=== PATIENT | female | born 1945 | race Caucasian/White ===

== ENCOUNTER 2016-09-06 22:19 | Inpatient (IN) | payer MEDICARE, OTHER ==
[~2016-09-06] VITALS: Ht 170.2 cm; Wt 92.2 kg
[2016-09-06] MEDS ORDERED: FLUT1AER INH (22:27)
[2016-09-06] MEDS ORDERED: RT-ALBUTEROL/IPRATROPIUM 3 ML (DUONEB) VIAL ONE (22:27)
[2016-09-06] MEDS ORDERED: CITA40TA11 PO (22:27)
[2016-09-06] MEDS ORDERED: MONT10TA24 PO (22:27)
--- NOTE | 2016-09-06 22:37 | ED Dyspnea ---
General Chief Complaint: Respiratory Problems Stated Complaint: SOA Nursing Triage Note: patient reports increased SOA and cough starting this morning. Source of Information: Patient, EMS, RN Notes Reviewed Exam Limitations: No Limitations History of Present Illness Time Seen by Provider: 22:30 Initial Comments As above and below. Known severe COPD. Sees Dr. Simmons here. Timing/Duration: Constant, Other (worsening since this AM) Severity: Moderate Activities at Onset: None Prior Episodes/Possible Cause: Frequent Episodes Modifying Factors: Worse With Activity, Improves With Other (lost electrical power @ home and was s/ her O2 concentrator and nebulizer.) Associated Symptoms: Cough, Wheezing Allergies and Home Medications Allergies Coded Allergies: No Known Drug Allergies (Unverified , 09/06/16) Home Medications Albuterol Sulfate 1 Puff Puff, 2 PUFF INH Q4H PRN for SHORTNESS OF BREATH, ( Reported) Aspirin 81 Mg Tab.chew, 81-162 MG PO DAILY PRN for PAIN, (Reported) Cetirizine HCl 10 Mg Tablet, 10 MG PO DAILY, (Reported) Citalopram Hydrobromide 40 Mg Tablet, 40 MG PO DAILY, (Reported) Cyanocobalamin (Vitamin B-12) 500 Mcg Tablet, 500 MCG PO DAILY, (Reported) Dextromethorphan HBr/Chlor-Mal 1 Each Tablet, 1 TAB PO DAILY, (Reported) Fluticasone/Vilanterol 1 Each Blst.w.dev, 1 PUFF INH DAILY, (Reported) Ipratropium/Albuterol Sulfate 3 Ml Ampul.neb, 3 ML IH Q6H PRN for SHORTNESS OF BREATH, (Reported) Montelukast Sodium 10 Mg Tablet, 10 MG PO HS, (Reported) Prednisone 20 Mg Tab, 20 MG PO DAILY, #11 Take 3 tabs(60mg)daily, decrease by 1/2 tab(10mg)daily. Prescribed by: DELILAH MEDEIROS on 09/08/16 1157 Constitutional: see HPI Respiratory: see HPI, cough, dyspnea on exertion, orthopnea, short of breath, wheezing : No All Other Systems Reviewed Negative Unless Noted: Yes (Negative excepted noted.) Past Licwvdp-Ttidwx-Kcverb Hx Patient Social History Alcohol Use: Denies Use Recreational Drug Use: No Smoking Status: Former Smoker Recent Foreign Travel: No Contact w/Someone Who Travel: No Recent Infectious Disease Expo: No Recent Hopitalizations: No Surgeries HX Surgeries: Yes (partial hysterectomy) Respiratory Hx Respiratory Disorders: Yes Respiratory Disorders: Chronic Bronchitis, COPD Cardiovascular Hx Cardiac Disorders: No Neurological Hx Neurological Disorders: No Reproductive System Hx Reproductive Disorders: No Sexually Transmitted Disease: No Genitourinary Hx Genitourinary Disorders: No Gastrointestinal Hx Gastrointestinal Disorders: No Musculoskeletal Hx Musculoskeletal Disorders: No Endocrine Hx Endocrine Disorders: No HEENT HX ENT Disorders: No Cancer Hx Cancer: No Psychosocial Hx Psychiatric Problems: No Integumentary HX Skin/Integumentary Disorder: No Blood Transfusions Hx Blood Disorders: No Physical Exam Vital Signs Vital Sign - Last 12Hours 09/06/16 22:25 Temp 99.3 Pulse 112 Resp 36 B/P (MAP) 118/69 Pulse Ox 92 O2 Delivery Nasal Cannula O2 Flow Rate 4.00 Capillary Refill : Less Than 3 Seconds General Appearance: WD/WN, Mild Distress, Obese HEENT: Pharynx Normal Neck: Normal Inspection Respiratory: Decreased Breath Sounds, Respiratory Distress (mild) Cardiovascular: Tachycardia Gastrointestinal: Other (obese) Rectal: Deferred Neurologic/Psychiatric: Alert, Oriented x3, No Motor/Sensory Deficits Skin: Warm/Dry Focused Exam Lactic Acid Level Laboratory Tests Test 09/06/16 22:45 Progress/Results/Core Measures Results/Orders Lab Results Laboratory Tests Test 09/06/16 22:45 Range/Units White Blood Count 10.5 4.3-11.0 10^3/uL Red Blood Count 4.03 L 4.35-5.85 10^6/uL Hemoglobin 10.1 L 11.5-16.0 G/DL Hematocrit 32 L 35-52 % Mean Corpuscular Volume 80 80-99 FL Mean Corpuscular Hemoglobin 25 25-34 PG Mean Corpuscular Hemoglobin Concent 31 L 32-36 G/DL Red Cell Distribution Width 14.3 10.0-14.5 % Platelet Count 205 130-400 10^3/uL Mean Platelet Volume 8.9 7.4-10.4 FL Neutrophils (%) (Auto) 81 H 42-75 % Lymphocytes (%) (Auto) 14 12-44 % Monocytes (%) (Auto) 4 0-12 % Eosinophils (%) (Auto) 1 0-10 % Basophils (%) (Auto) 0 0-10 % Neutrophils # (Auto) 8.6 H 1.8-7.8 X 10^3 Lymphocytes # (Auto) 1.5 1.0-4.0 X 10^3 Monocytes # (Auto) 0.4 0.0-1.0 X 10^3 Eosinophils # (Auto) 0.1 0.0-0.3 10^3/uL Basophils # (Auto) 0.0 0.0-0.1 10^3/uL Micro Results Microbiology 09/06/16 Influenza Types A,B Antigen (TAVO) - Final, Complete My Orders Orders - MICHELLE AMARAL DO Albuterol/Ipra Inhalation Soln (Duoneb I (09/06/16 22:27) Ekg Tracing (09/06/16 22:34) BNP (09/06/16 22:34) Cbc With Automated Diff (09/06/16 22:34) Comprehensive Metabolic Panel (09/06/16 22:34) Lactic Acid Analyzer (09/06/16 22:34) Magnesium (09/06/16 22:34) Troponin I (09/06/16 22:34) Influenza A And B Antigens (09/06/16 22:34) Blood Culture (09/06/16 22:34) Chest 1 View, Ap/Pa Only (09/06/16 22:34) Albuterol Pre-Mix Nebs (Rt) (Proventil P (09/06/16 22:38) Medications Given in ED Current Medications Medications Dose Ordered Sig/Tatianna Route Start Time Stop Time Status Last Admin Dose Admin Albuterol Sulfate 2.5 mg STK-MED ONCE .ROUTE 09/06/16 22:38 09/06/16 22:41 DC 09/06/16 22:44 7.5 MG Albuterol/ Ipratropium 3 ml STK-MED ONCE .ROUTE 09/06/16 22:27 09/06/16 22:30 DC 09/06/16 22:35 3 ML Vital Signs/I&O Vital Sign - Last 12Hours 09/06/16 09/06/16 09/06/16 22:25 22:35 22:45 Temp 99.3 Pulse 112 Resp 36 B/P (MAP) 118/69 Pulse Ox 92 92 O2 Delivery Nasal Cannula O2 Flow Rate 4.00 4.00 8.00 Blood Pressure Mean: 85 ECG Initial ECG Impression Date: Sep 06, 2016 Initial ECG Impression Time: 22:40 Initial ECG Rate: 106 Initial ECG Rhythm: Normal Sinus Initial ECG Impression: Nonspecific Changes Initial ECG Comparisson: No Previous ECG Available Comment PVC; Inferior ME, old; Diagnostic Imaging Diagonstic Imaging: Xray Plain Films/CT/US/NM/MRI: chest (COPD; ? RLL pneumonitis) Departure Communication Time/Spoke to Admitting Phy: 00:45 Impression Impression: Primary Impression: AECOPD Disposition: ADMITTED INPATIENT Condition: Stable Decision to Admit Reason: Admit from ER (General) Decision to Admit/Date: Sep 07, 2016 Time/Decision to Admit Time: 00:45 Departure-Patient Inst. Referrals: PANCHO ÁLVAREZ DO (PCP/Family) Primary Care Physician Scripts Prednisone (Prednisone) 20 Mg Tab 20 MG PO DAILY, #11 TAB Take 3 tabs(60mg)daily, decrease by 1/2 tab(10mg)daily. Prov: DELILAH MEDEIROS MD 09/08/16 MICHELLE AMARAL DO Sep 06, 2016 22:37
[2016-09-06] MEDS ORDERED: RT-ALBUTEROL SULF 2.5 MG/3 ML PRE-MIX VIAL ONE (22:38)
[2016-09-06 22:54] LABS: BASOPHILS % (AUTO) 0 % (0-10); EOSINOPHILS # (AUTO) 0.1 10^3/uL (0.0-0.3); EOSINOPHILS % (AUTO) 1 % (0-10); LYMPHOCYTES # (AUTO) 1.5 X 10^3 (1.0-4.0); LYMPHOCYTES % (AUTO) 14 % (12-44); MEAN CORPUSCULAR HEMOGLOBIN 25 PG (25-34); MEAN CORPUSCULAR HGB CONC 31 G/DL (32-36); MEAN CORPUSCULAR VOLUME 80 FL (80-99); MEAN PLATELET VOLUME 8.9 FL (7.4-10.4); MONOCYTES # (AUTO) 0.4 X 10^3 (0.0-1.0); MONOCYTES % (AUTO) 4 % (0-12); NEUTROPHILS # (AUTO) 8.6 X 10^3 (1.8-7.8); NEUTROPHILS % (AUTO) 81 % (42-75); PLATELET COUNT 205 10^3/uL (130-400); RED BLOOD COUNT 4.03 10^6/uL (4.35-5.85); RED CELL DISTRIBUTION WIDTH 14.3 % (10.0-14.5); WHITE BLOOD COUNT 10.5 10^3/uL (4.3-11.0)
[2016-09-06 23:12] LABS: ALANINE AMINOTRANSFERASE 8 U/L (0-55); ALBUMIN 3.7 G/DL (3.2-4.5); ANION GAP 11 MMOL/L (5-14); ASPARTATE AMINO TRANSFERASE 15 U/L (5-34); BLOOD UREA NITROGEN 17 MG/DL (7-18); BUN/CREATININE RATIO 16; CALCIUM 8.6 MG/DL (8.5-10.1); CARBON DIOXIDE 23 MMOL/L (21-32); CHLORIDE 105 MMOL/L (98-107); CREATININE SERUM 1.09 MG/DL (0.60-1.30); GFR ESTIMATED 49; GLUCOSE 132 MG/DL (70-105); MAGNESIUM 1.7 MG/DL (1.8-2.4); POTASSIUM 4.1 MMOL/L (3.6-5.0); SODIUM 139 MMOL/L (135-145); TOTAL PROTEIN 6.6 G/DL (6.4-8.2)
[2016-09-06 23:18] LABS: TROPONIN I < 0.30 NG/ML (<0.30)
[2016-09-06] MEDS ORDERED: cefTRIAXone INJECTION 1,000 MG in NS (IVPB) 50 ML IV ONE (23:45)
[2016-09-06] MEDS ORDERED: cefTRIAXone 1 GM (ROCEPHIN) VIAL ONE (23:50)
[2016-09-06] MEDS ORDERED: NS (IVPB) 50 ML ONE (23:50)
[2016-09-07] VITALS (7 sets, daily range): BP systolic 121–157; BP diastolic 66–80
[2016-09-07] MEDS ORDERED: RT-ALBUTEROL SULF 2.5 MG/3 ML PRE-MIX VIAL IH PRN (02:45)
[2016-09-07] MEDS ORDERED: RT-ALBUTEROL/IPRATROPIUM 3 ML (DUONEB) VIAL INH PRN (02:45)
[2016-09-07] MEDS ORDERED: methylPREDNISolone 125 MG (Solu-MEDROL) VIAL IVP SCH (02:48)
[2016-09-07] MEDS ORDERED: RT-ALBUTEROL/IPRATROPIUM 3 ML (DUONEB) VIAL IH SCH (03:00)
[2016-09-07] MEDS ORDERED: ENOXAPARIN 40 MG/0.4 ML (LOVENOX) SYR SC ONE (03:00)
[2016-09-07] MEDS: NS IV 1000 ML 1,000 ML IV SCH ×2 (03:02→13:53)
[2016-09-07] MEDS: AZITHROMYCIN 500 MG/NS 250 ML IVPB IV SCH ×2 (03:02)
[2016-09-07] MEDS ORDERED: CATHETER FLUSH 10 ML SYR IV PRN (06:45)
[2016-09-07] MEDS: RT-ALBUTEROL/IPRATROPIUM 3 ML (DUONEB) VIAL INH SCH ×6 (07:16→22:15)
--- NOTE | 2016-09-07 07:24 | Pulmonary Consultation ---
History of Present Illness History of Present Illness Date of Consultation 09/07/16 07:20 Date of Admission History of Present Illness 71yo with hx of very severe emphysema oxygen dependent presented to ED secondary to worsening SOB. On Wednesday pt had prolonged loss of power and he had to switch to liquid oxygen. She has had to increase oxygen to 6l/min. SOB has continued to worsen which prompted her ED visit. Allergies and Home Medications Allergies Coded Allergies: No Known Drug Allergies (Unverified , 09/06/16) Home Medications Albuterol Sulfate 1 Puff Puff, 2 PUFF INH Q4H PRN for SHORTNESS OF BREATH, ( Reported) Aspirin 81 Mg Tab.chew, 81-162 MG PO DAILY PRN for PAIN, (Reported) Cetirizine HCl 10 Mg Tablet, 10 MG PO DAILY, (Reported) Citalopram Hydrobromide 40 Mg Tablet, 40 MG PO DAILY, (Reported) Cyanocobalamin (Vitamin B-12) 500 Mcg Tablet, 500 MCG PO DAILY, (Reported) Dextromethorphan HBr/Chlor-Mal 1 Each Tablet, 1 TAB PO DAILY, (Reported) Fluticasone/Vilanterol 1 Each Blst.w.dev, 1 PUFF INH DAILY, (Reported) Ipratropium/Albuterol Sulfate 3 Ml Ampul.neb, 3 ML IH Q6H PRN for SHORTNESS OF BREATH, (Reported) Montelukast Sodium 10 Mg Tablet, 10 MG PO HS, (Reported) Prednisone 20 Mg Tab, 20 MG PO DAILY, #11 Take 3 tabs(60mg)daily, decrease by 1/2 tab(10mg)daily. Prescribed by: DELILAH MEDEIROS on 09/08/16 1157 Past Apqeppp-Ukgkgt-Cgxwxm Hx Patient Social History Alcohol Use: Denies Use Recreational Drug Use: No Smoking Status: Former Smoker Recent Foreign Travel: No Contact w/Someone Who Travel: No Recent Infectious Disease Expo: No Recent Hopitalizations: No Physical Abuse Screen: No Sexual Abuse: No Immunizations Up To Date Date of Pneumonia Vaccine: Feb 08, 2016 Date of Influenza Vaccine: Apr 09, 2016 Surgeries HX Surgeries: Yes (partial hysterectomy) Respiratory Hx Respiratory Disorders: Yes Respiratory Disorders: COPD Cardiovascular Hx Cardiac Disorders: No Neurological Hx Neurological Disorders: No Reproductive System Hx Reproductive Disorders: No Sexually Transmitted Disease: No Genitourinary Hx Genitourinary Disorders: No Gastrointestinal Hx Gastrointestinal Disorders: No Musculoskeletal Hx Musculoskeletal Disorders: No Endocrine Hx Endocrine Disorders: No HEENT HX ENT Disorders: No Hearing Impairment: Denies Cancer Hx Cancer: No Psychosocial Hx Psychiatric Problems: No Integumentary HX Skin/Integumentary Disorder: No Blood Transfusions Hx Blood Disorders: No Family Medical History Family Medial History: CANCER 19 MOTHER COPD 19 MOTHER Diabetes mellitus G8 BROTHER Review of Systems Constitutional: Malaise, Sweats, Weakness Respiratory: Cough, SOB with excertion, Shortness of breath, Sputum Cardiovascular: Paroxysmal Noc. Dyspnea Neurological: Confusion, Weakness Exam Exam Vital Signs Date Time Temp Pulse Resp B/P (MAP) Pulse Ox O2 Delivery O2 Flow Rate FiO2 09/07/16 03:24 98.5 84 14 140/72 95 Nasal Cannula 3.00 09/07/16 01:30 93 09/07/16 01:30 93 4.00 09/07/16 01:15 90 Nasal Cannula 4.00 09/07/16 00:40 99.7 112 24 145/76 90 Nasal Cannula 4.00 09/07/16 00:16 99.2 98 28 92 4.00 09/06/16 22:45 8.00 09/06/16 22:35 92 4.00 09/06/16 22:25 99.3 112 36 118/69 92 Nasal Cannula 4.00 I & O 09/07/16 07:00 Intake Total 400 ml Output Total 300 ml Balance 100 ml General Appearance: Mild Distress Neck: Full Range of Motion, Normal Inspection, Non Tender, Supple Respiratory: No Accessory Muscle Use, No Respiratory Distress, Decreased Breath Sounds Cardiovascular: Regular Rate, Rhythm Capillary Refill: Less Than 3 Seconds Gastrointestinal: normal bowel sounds, non tender, soft, no organomegaly Neurologic/Psychiatric: Alert Skin: Normal Color, Warm/Dry Results Lab Laboratory Tests 09/06/16 22:45 Assessment/Plan Assessment/Plan COPDAE -SVNS, solumedrol -oxygen titrate for Sp02 90-94% Clinical Quality Measures DVT/VTE Risk/Contraindication: Risk Factor Score Per Nursin RFS Level Per Nursing on Admit: 4+=Very High LISA SAXENA DO Sep 07, 2016 07:24
--- NOTE | 2016-09-07 08:04 | Diagnostic Imaging Report ---
INDICATION: Dyspnea and cough with Abnormal chest x-ray Portable upright view of the chest is obtained. Comparison is made to study of 03/23/2016. Similar to the previous study, there is bilateral air trapping. Interstitial prominence seen throughout the lungs. Focal opacity in the right upper lobe has not significantly changed. There is also mild residual patchy density in the right lung base which may be slightly increased. There is no pneumothorax or evidence of significant pleural fluid. IMPRESSION: Findings are compatible with COPD. Patchy densities in the right lung may be related to pneumonitis or atypical pneumonia. Radiographic followup is recommended to document resolution. If these findings persist or increase, consideration should be given to CT scan. Dictated by: Dictated on workstation # [id number]
[2016-09-07] MEDS ORDERED: DEXT1TAB3 PO (10:12)
[2016-09-07] MEDS ORDERED: RT-ALBUINH INH (10:12)
[2016-09-07] MEDS ORDERED: IPRA3AMP IH (10:12)
[2016-09-07] MEDS ORDERED: ASPI-999 PO (10:12)
[2016-09-07] MEDS ORDERED: CYAN500T2 PO (10:15)
[2016-09-07] MEDS ORDERED: CETI10TA20 PO (10:18)
[2016-09-07] MEDS: BENZONATATE 100 MG (TESSALON) CAPSULE PO PRN ×2 (11:59→17:41)
[2016-09-07] MEDS: methylPREDNISolone 40 MG/ML (Solu-MEDROL) VIAL IV SCH ×3 (12:01→23:09)
[2016-09-07] MEDS ORDERED: ASPIRIN 81 MG CHEW (CHILDREN'S ASA) PO PRN (12:30)
--- NOTE | 2016-09-07 15:15 | History & Physical-Hospitalist ---
HPI History of Present Illness: HPI/Chief Complaint The patient is a 71-year-old white female who lives in the [facility]. She has had symptoms of COPD for some years. She has a nebulizer at her home and also a concentrator and a large tank of liquid oxygen. She reports that on Wednesday she had a prolonged power loss and had to switch to the liquid oxygen supply. Although she has a finger probe SaO2 monitor she did not check it. Empirically she increased her flow Rate to 6 L/m. She continued to feel short of breath and presented to the emergency room here. She sees Dr. Wilks from [place]. Source: patient, family Exam Limitations: no limitations Date Seen 09/07/16 Attending Physician Bill Wright MD PCP Yosef Wilks DO Referring Physician Date of Admission Sep 07, 2016 at 00:02 Home Medications & Allergies Home Medications Reviewed patient Home Medication Reconciliation Form Allergies Allergies Coded Allergies No Known Drug Allergies (Unverified09/06/16) Past Kzzkvco-Ncvhgg-Llqfhm Hx Patient Social History Alcohol Use: Denies Use Recreational Drug Use: No Smoking Status: Former Smoker Physical Abuse Screen: No Sexual Abuse: No Recent Foreign Travel: No Contact w/other who traveled: No Recent Hopitalizations: No Recent Infectious Disease Expo: No Immunizations Up To Date Date of Pneumonia Vaccine: Feb 08, 2016 Date of Influenza Vaccine: Apr 09, 2016 Surgeries HX Surgeries: Yes (partial hysterectomy) Respiratory Hx Respiratory Disorders: Yes Cardiovascular Hx Cardiovascular Disorders: No Neurological Hx Neurological Disorders: No Reproductive System Hx Reproductive Disorders: No Sexually Transmitted Disease: No Genitourinary Hx Genitourinary Disorders: No Gastrointestinal Hx Gastrointestinal Disorders: No Musculoskeletal Hx Musculoskeletal Disorders: No Endocrine Hx Endocrine Disorders: No HEENT HX ENT Disorders: No Hearing Impairment: Denies Cancer Hx Cancer: No Psychosocial Hx Psychiatric Problems: No Integumentary HX Skin/Integumentary Disorder: No Blood Transfusions Hx Blood Disorders: No Family Medical History Family Hx: CANCER 19 MOTHER COPD 19 MOTHER Diabetes mellitus G8 BROTHER Review of Systems Constitutional: see HPI EENTM: no symptoms reported Respiratory: see HPI, cough, dyspnea on exertion, short of breath, wheezing Cardiovascular: no symptoms reported Gastrointestinal: no symptoms reported Genitourinary: no symptoms reported Musculoskeletal: no symptoms reported Skin: no symptoms reported Psychiatric/Neurological: No Symptoms Reported Physical Exam Physical Exam Vital Signs Vital Sign - Last 12Hours 09/06/16 22:25 Temp 99.3 Pulse 112 Resp 36 B/P (MAP) 118/69 Pulse Ox 92 O2 Delivery Nasal Cannula O2 Flow Rate 4.00 Capillary Refill : Less Than 3 Seconds General Appearance: Mild Distress Eyes: Bilateral Eye Normal Inspection HEENT: Normal ENT Inspection Neck: Normal Inspection Respiratory: Decreased Breath Sounds (distant) Cardiovascular: Regular Rate, Rhythm, No Edema, No Gallop, No JVD, No Murmur, Normal Peripheral Pulses Gastrointestinal: Normal Bowel Sounds, No Organomegaly, No Pulsatile Mass, Non Tender, Soft Back: Normal Inspection Extremity: Normal Capillary Refill, Normal Inspection, Normal Range of Motion, Non Tender, No Calf Tenderness, No Pedal Edema Neurologic/Psychiatric: Alert, Oriented x3, No Motor/Sensory Deficits, Normal Mood/Affect Skin: Normal Color, Warm/Dry Lymphatic: No Adenopathy Results Results/Procedures Lab Laboratory Tests 09/06/16 22:45 Assessment/Plan Admission Diagnosis COPD in exacerbation. Assessment and Plan Pulmonary toilet. 2.consult [address] Dr[address] Simmons. Clinical Quality Measures DVT/VTE Risk/Contraindication: Risk Factor Score Per Nursin RFS Level Per Nursing on Admit: 4+=Very High DELILAH MEDEIROS MD Sep 07, 2016 15:15
[2016-09-07] MEDS: RT-ADVAIR HFA 45/21 MCG PER PUFF IH SCH (18:31)
[2016-09-07] MEDS ORDERED: MONTELUKAST 10 MG (SINGULAIR) TAB PO SCH (21:00)
[2016-09-07] MEDS ORDERED: cefTRIAXone INJECTION 1,000 MG in NS (IVPB) 50 ML IV SCH (23:00)
[2016-09-08] MEDS: NS IV 1000 ML 1,000 ML IV SCH ×2 (01:16→08:45)
[2016-09-08] MEDS: RT-ALBUTEROL/IPRATROPIUM 3 ML (DUONEB) VIAL INH SCH ×4 (02:28→14:22)
[2016-09-08] MEDS: AZITHROMYCIN 500 MG/NS 250 ML IVPB IV SCH ×2 (02:41)
[2016-09-08 04:00] VITALS: BP 143/80
[2016-09-08] MEDS: methylPREDNISolone 40 MG/ML (Solu-MEDROL) VIAL IV SCH (05:44)
[2016-09-08] MEDS: RT-ADVAIR HFA 45/21 MCG PER PUFF IH SCH (06:47)
--- NOTE | 2016-09-08 07:21 | Pulmonary Progress Note ---
Subjective Subjective/Events-last exam No complications noted. Exam Exam Vital Signs Date Time Temp Pulse Resp B/P (MAP) Pulse Ox O2 Delivery O2 Flow Rate FiO2 09/08/16 06:56 3.00 09/08/16 06:47 96 3.00 09/08/16 04:00 96.3 80 20 143/80 97 Nasal Cannula 3.00 09/08/16 02:29 98 3.00 09/07/16 23:30 97.2 83 18 157/80 94 Nasal Cannula 3.00 09/07/16 22:16 96 3.00 09/07/16 20:35 Nasal Cannula 3.00 09/07/16 20:10 97.7 86 20 126/67 96 Room Air 09/07/16 18:31 3.00 09/07/16 18:28 97 3.00 09/07/16 16:18 96.7 81 20 121/66 94 Room Air 09/07/16 13:32 97 3.00 09/07/16 12:00 97.9 74 20 126/70 97 Nasal Cannula 3.00 09/07/16 11:05 97 3.00 09/07/16 10:00 95 Nasal Cannula 3.00 09/07/16 08:00 97.3 69 20 125/68 95 Nasal Cannula 3.00 09/07/16 08:00 97.3 69 20 125/68 95 Room Air 09/07/16 07:41 95 3.00 I & O 09/08/16 07:00 Intake Total 3670 ml Output Total 1500 ml Balance 2170 ml General Appearance: Mild Distress HEENT: Normal ENT Inspection Neck: Normal Inspection Respiratory: Decreased Breath Sounds (distant) Cardiovascular: Regular Rate, Rhythm, No Edema, No Gallop, No JVD, No Murmur, Normal Peripheral Pulses Capillary Refill: Less Than 3 Seconds Extremity: Normal Capillary Refill, Normal Inspection, Normal Range of Motion, Non Tender, No Calf Tenderness, No Pedal Edema Neurologic/Psychiatric: Alert, Oriented x3, No Motor/Sensory Deficits, Normal Mood/Affect Skin: Normal Color, Warm/Dry Lymphatic: No Adenopathy Results Lab Laboratory Tests 09/06/16 22:45 Assessment/Plan Assessment/Plan COPDAE -SVNS, solumedrol-- change to prednisone taper -Advair -oxygen titrate for Sp02 90-94% -Titrate Fi02 as tolerated Clinical Quality Measures DVT/VTE Risk/Contraindication: Risk Factor Score Per Nursin RFS Level Per Nursing on Admit: 4+=Very High LISA SAXENA DO Sep 08, 2016 07:21
[2016-09-08 08:00] VITALS: BP 127/62
[2016-09-08] MEDS ORDERED: AZITHROMYCIN 250 MG TAB (ZITHROMAX) PO SCH (09:00)
--- NOTE | 2016-09-08 11:01 | Progress Note-Hospitalist ---
Standard Progress Note Progress Notes/Assess & Plan Date Seen 09/08/16 Diagnosis COPD in exacerbation. Assess & Plan/Chief Complaint The patient reports that she feels a good deal better today. Dr. Simmons has discontinued the IV steroids. She reports that she feels unsteady on her feet and shaky. Her O2 has currently been at 3 L yielding SaO2's in the mid to high 90s. Physical exam shows a white female who appears much older than stated age. She is breathing easily while sitting. Lungs show distant breath sounds without wheezing or rhonchi. CV is regular without murmur. Ankles are dry. Impression: Severe COPD. Transient destabilization secondary to power loss in her home. Tremorous the movement suggesting the possibility of high-dose steroid side effect. Plan: Oral prednisone taper and discharge. Labs Laboratory Tests 09/06/16 22:45 DELILAH MEDEIROS MD Sep 08, 2016 11:01
--- NOTE | 2016-09-08 11:36 | Physical Therapy Evaluation ---
PT Evaluation-General Medical Diagnosis Admission Date Sep 07, 2016 at 00:02 Medical Diagnosis: acute COPD exacerbation Onset Date: Sep 07, 2016 Therapy Diagnosis Therapy Diagnosis: generalized weakness and debility Height/Weight Height (Feet): 5 Height (Inches): 7.00 Weight (Pounds): 203 Weight (Ounces): 5.0 Precautions Precautions/Isolations: Fall Prevention, Standard Precautions Referral Physician: Sridevi Reason for Referral: Evaluation/Treatment Medical History Pertinent Medical History: COPD Additional Medical History O2 dependent; former smoker Current History power loss at home and had to switch to liquid O2 and increase liters causing SAO2 to decrease and CO2 to increase Reviewed History: Yes Social History Home: Single Level Current Living Status: Alone Prior/Core FIM Prior Level of Function Functional [place] Measure 0=Not Assessed/NA 4=Minimal Assistance 1=Total Assistance 5=Supervision or Setup 2=Maximal Assistance 6=Modified [place] 3=Moderate Assistance 7=Complete [place] Bed Mobility: 7 Transfers (B,C,W/C) (FIM): 7 Gait: 7 ambulates short distances in home only due to diminished lung capacity prior PT Evaluation-Current Subjective Patient in bed and on 3L O2 NC. Patient agrees to PT. Pain Numeric Pain Scale: 0-No Pain Location: No Pain Reported Objective Patient Orientation: Normal For Age Problem Solving: Good Attachments: Oxygen (3L) ROM/Strength ROM Lower Extremities bilateral LE WFL Strenght Lower Extremities right knee flexion/extension 4/5; hip flexion 4/5; ankle dorsi/plantarflexion 4/ 5 left knee flexion/extension 4/5 hip flexion 4/5; ankle dorsi/plantarflexion 4/5 Integumentary/Posture Integumentary refer to nursing notes Bowel Incontinence: No Bladder Incontinence: Yes Posture WNL Neuromuscular (Tone, Coordination, Reflexes) noted tremors due to steroids; slightly diminished coordination Sensory Vision: Functional Hearing: Functional Sensation Right Lower Extremit: Intact Sensation Left Lower Extremity: Intact Transfers Functional [place] Measure 0=Not Assessed/NA 4=Minimal Assistance 1=Total Assistance 5=Supervision or Setup 2=Maximal Assistance 6=Modified [place] 3=Moderate Assistance 7=Complete [place] Transfers (B, C, W/C) (FIM): 5 Scootin Rollin Supine to/from Sit: 6 Sit to/from Stand: 5 SBA for safety Gait Mode of Locomotion: Walk Anticipated Mode of Locomotion: Walk Gait (FIM): 1 Distance (FIM): 1=up to 49 ft (15' x 2) Gait Level of Assist: 5 Gait Persons Needed: 1 Gait Assistive Device: FWW Comments/Gait Description use of FWW for energy conservation with noted increase SOA with minimal exertion requiring RT in for treatment Balance Sitting Static: Normal Sitting Dynamic: Normal Standing Static: Normal Standing Dynamic: Normal Assessment/Needs 71 y.o. female with severe COPD, will benefit from short term skilled PT to address pulmonary function with functional mobility to improve current LOF. Patient reports she is very limited prior to this admit with functional mobility secondary to COPD. Patient plans dismissal to home with home health intervention. Rehab Potential: Fair Post Rehab Potential-Barriers: COPD PT Short Term Goals Short Term Goals Time Frame: Sep 11, 2016 Transfers (B,C,W/C) (FIM): 6 Gait (FIM): 1 Distance (FIM): 1=up to 49 ft Gait Distance Comment: 25-30' Gait Level of Assist: 6 Gait Assistive Device: None, FWW PT Plan Problem List Problem List: Activity Tolerance Treatment/Plan Treatment Plan: Continue Plan of Care Treatment Plan: Education, Functional Activity Caitlyn, Functional Strength, Gait , Safety, Therapeutic Exercise Treatment Duration: Sep 11, 2016 # of days/week 4 Visits Per Week: 4 Pt/Family Agrees w/Plan: Yes Safety Risks/Education Patient Education: Safety Issues Teaching Recipient: Patient Teaching Methods: Discussion Response to Teaching: Verbalize Understanding Discharge Recommendations Therapy D/C Recommendations: Occupational Therapy Home Care, Physical Therapy Home Care Time/GCodes Time In: 1040 Time Out: 1100 Total Billed Treatment Time: 20 Total Billed Treatment 1 visit EVModC 20 min ANDREA CARROLL PT Sep 08, 2016 11:36
[2016-09-08] MEDS ORDERED: PRD20T PO (11:57)
[2016-09-08 12:00] VITALS: BP 133/75
[2016-09-08] MEDS ORDERED: predniSONE 10 MG TAB PO SCH (12:00)
--- NOTE | 2016-09-08 13:37 | Occupational Therapy Eval ---
OT Evaluation-General/PLF Medical Diagnosis Admission Date Sep 07, 2016 at 00:02 Medical Diagnosis: acute COPD exacerbation Onset Date: Sep 06, 2016 Therapy Diagnosis Therapy Diagnosis: Decreased activity tolerance Height/Weight Height (Feet): 5 Height (Inches): 7.00 Weight (Pounds): 203 Weight (Ounces): 5.0 Precautions Precautions/Isolations: Fall Prevention, Standard Precautions Safety Interventions: Bed Exit Alarm Referral Physician: Sridevi Referral Reason: Evaluation/Treatment Medical History Pertinent Medical History: COPD Additional Medical History Chronic bronchitis, O2 dependant, emphysema Current History Admitted through ED with SOA, respiratory problems. Social History Home: Single Level Current Living Status: Alone ADL-Prior Level of Function ADL PLOF Comments Pt reported that she has been able to manage her basic self care needs but they all take longer than usual due to fatigue and difficulty breathing. She usually has to rest after taking herself to the bathroom. She reported that her grandchildren help with cleaning and laundry and she only has to fix simple meals or heat food up. She has not driven for 2 years and doesn't leave the house often because of difficulty getting to her car. She watches TV in her leisure time Pt reported that she doesn't have any DME or adapted equipment at home except a walker Drive Self: No OT Current Status Subjective Pt seen in room, up in recliner, agreeable to OT. Pt reported she is not in any pain. Appearance Alert, cooperative. Pt becomes SOA when talking Mental Status/Objective Patient Orientation: Person, Place, Situation Attachments: IV, Oxygen Current Hand Dominance: Right Upper Extremity ROM Grossly WFL bilat Upper Extremity Strength grossly 4/5 bilat ADL-Treatment ADL-Current Pt has been feeding herself and commented that eating fast wears her out. She usually has some one help her into the bathroom because of managing the IV and O2 tubing. O2 at 3L/min nc. She normally doesn't walk with a walker at home but has one and plans to use it to conserve her energy. Shared general information on techniques that might be helpful to her to conserve her energy when she gets home and she was provided with written information to read. Since she doesn't have any assistive devices for basic ADLs, she might benefit from such items as sock aid, long shoe horn, reachers, dressing stick, elastic shoe laces. In her bathroom she could consider taller toilet, grab bars, shower chair. She is going to receive home health OT and will have the added benefit of modifying activities in her own environment. pt to discharge to home this afternoon with home health OT. Functional Crawford Measure 0=Not Assessed/NA 4=Minimal Assistance 1=Total Assistance 5=Supervision or Setup 2=Maximal Assistance 6=Modified Crawford 3=Moderate Assistance 7=Complete IndependenceIRFPAI Quality Coding Scale 6 Independent with activity with or without an assistive device 5 Patient requires set up or clean up by helper. Patient completes activity by themselves 4 Supervision or touching assist (CGA). [place] provide cues , steadying assist 3 The helper provides less than half the effort to complete the activity 2 The helper provides more than half the effort to complete the activity 1 Dependent. The helper does all the effort to complete an activity 7 Patient refused to complete or attempt activity 9 The patient did not perform the activity before the current illness or injury 88 Not attempted due to Medical conditions or safety concerns Education OT Patient Education: Energy conservation, Modified ADL techniques, Purpose of tx/functional activities, Rehab process Teaching Recipient: Patient, Family Teaching Methods: Discussion Response to Teaching: Verbalize Understanding OT Snf Goals Snf Goals Time Frame: Sep 08, 2016 Pt will have access to educational materials for energy conservation - goal met OT Education/Plan Problem List/Assessment Assessment: Decreased Activ Tolerance, Impaired Self-Care Skills Pt would benefit from education in techniques to conserve her energy so that she can go home to be as independent and safe as possible. Pt to discharge to home today and will have home health OT Discharge Recommendations Plan/Recommendations: Discharge/Goals Met Barriers to Progress Activity limitation from COPD Treatment Plan/Plan of Care Patient would benefit from OT for education, treatment and training to promote independence in ADL's, mobility, safety and/or upper extremity function for ADL' s. Plan of Care: OTHER (energy conservation education) Treatment Duration: Sep 08, 2016 # of days/week 1 Visits Per Week: 1 Agreement: Yes Rehab Potential: Fair Time/GCodes Start Time: 13:10 Stop Time: 13:30 Total Time Billed (hr/min): 20 Billed Treatment Time visit, evaluation low intensity ECTOR ROCK OT Sep 08, 2016 13:37
--- NOTE | 2016-09-08 14:32 | Discharge Inst-Home Health ---
Discharge Inst-to Home Health Patient Instructions Patient Instructions/FollowUp: O2 to maintain her SaO2 between 88 and 94 percent. Medications as in the discharge list Nebulizer treatments as before, 3 times a day and as needed Patient Problems: Severe COPD Diabetes Goal: Maintain comfort and home [place], [place] DISCHARGE ORDERS Allergies: Coded Allergies: No Known Drug Allergies (Unverified , 09/06/16) Height (Feet): 5 Height (Inches): 7.00 Weight (Pounds): 203 Weight (Ounces): 5.0 Home Health Need/Face to Face Reason Pt Homebound y I Have Seen Pt [id number]: Yes Date of Face to Face: Sep 08, 2016 Discharged To: Home Diagnosis/Conditions HH Order: O2 dependent COPD Severe deconditioning y Consult/Follow Up/New Order *I certify that based on my findings, the following services are medically necessary Home Health Services: y Services: Nursing Services, Technical Account Manager-Evaluate & Treat, Physical Therapy-Evaluate & Treat, Other (bath) My clinical findings support the need for the above services; see Diagnosis. y Dicharge Diet: ADA Diet Daily Activity as Tolerated: Yes I certify that this patient is under my care and that I, a nurse practitioner or a physician; a assistant plant control operator working with me, had a face to face encounter that - meets the physician face to face encounter requirements with this patient as dated. DELILAH Cisneros MD Sep 08, 2016 14:32
[2016-09-08] MEDS ORDERED: RT-ADVAIR HFA 115/21 MCG PER PUFF IH SCH (20:00)
== END 2016-09-08 16:10 | disposition home health service (06) | DRG 192 ==
LOC: DELPENDDIS → EDUNIT# 22:19 → ER 22:21 → 4TH 23:48 → UNDOADMIN 23:48 → 4TH 09-07 00:02 → UNDOADMIN 09-07 00:02 → UNDODISIN 09-08 16:10
PROVIDERS: ADMIT Internal Medicine; ATTEND Internal Medicine
DX: J44.1 Chronic obstructive pulmonary disease with (acute) exacerbation (principal); Z87.891 Personal history of nicotine dependence; Z90.710 Acquired absence of both cervix and uterus
CPT/HCPCS: 36415; 71010; 80053; 83605; 83735; 83880; 84484; 85025; 87040; 87804; 94640; 94760; 96365

== ENCOUNTER → 2016-10-09 | Outpatient (CLI) | payer MEDICARE, OTHER ==
[~2016-10-09] MED LIST: ASPI-999 PO; CETI10TA20 PO; CITA40TA11 PO; CYAN500T2 PO; DEXT1TAB3 PO; FLUT1AER INH; IPRA3AMP IH; MONT10TA24 PO; PRD20T PO; RT-ALBUINH INH
--- NOTE | 2016-10-09 16:18 | Diagnostic Imaging Report ---
PROCEDURE: CT chest without contrast. TECHNIQUE: Multiple contiguous axial images were obtained through the chest without the use of intravenous contrast. INDICATION: Shortness of breath. Unable to lie down. COPD. Comparison with chest x-ray of 09/06/2016. FINDINGS: Obstructive interstitial lung disease is present. The interstitial changes are more severe in the right lower lung. There is no consolidated infiltrate present. There is some tree-in-bud infiltrate noted posteriorly in the right lower lobe which may represent acute infiltrate. There is pleural thickening along the right lung apex posteriorly. No parenchymal masses are present. No mediastinal or hilar adenopathy of pathologic size. No pleural effusion or pericardial effusion. The aorta is atherosclerotic. Aortic root measures 3.9 cm. No bony abnormalities demonstrated. IMPRESSION: 1. Obstructive bilateral interstitial lung disease. 2. Tree-in-bud interstitial infiltrate in the right lower lung may represent some superimposed acute infiltrate. No bronchiectasis or consolidated infiltrates are demonstrated. Dictated by: Dictated on workstation # [id number]
== END ==
LOC: RAD 15:41
PROVIDERS: ATTEND Internal Medicine Critical Care Medicine
DX: R06.02 Shortness of breath (principal); J44.9 Chronic obstructive pulmonary disease, unspecified; E66.9 Obesity, unspecified
CPT/HCPCS: 71250

== ENCOUNTER 2018-05-31 18:59 | Inpatient (IN) | payer MEDICARE, OTHER ==
[~2018-05-31] VITALS: Ht 170.2 cm; Wt 84.5 kg
[2018-05-31] VITALS (13 sets, daily range): BP systolic 98–127; BP diastolic 63–97
[~2018-05-31 18:59] MED LIST changes: -IPRA3AMP IH; +IPRA3AMP31 NEB
[2018-05-31] MEDS ORDERED: RT-ALBUTEROL SULF 2.5 MG/3 ML PRE-MIX VIAL INH STA (19:12)
[2018-05-31] MEDS ORDERED: ACETAMINOPHEN 500 MG TAB (TYLENOL) PO ONE (19:15)
[2018-05-31] MEDS ORDERED: methylPREDNISolone 125 MG (Solu-MEDROL) VIAL IVP ONE (19:15)
[2018-05-31 19:18] LABS: BASOPHILS % (AUTO) 0 % (0-10); EOSINOPHILS # (AUTO) 0.1 10^3/uL (0.0-0.3); EOSINOPHILS % (AUTO) 1 % (0-10); HEMATOCRIT 36 % (35-52); HEMOGLOBIN 11.7 G/DL (11.5-16.0); LYMPHOCYTES # (AUTO) 1.8 X 10^3 (1.0-4.0); LYMPHOCYTES % (AUTO) 18 % (12-44); MEAN CORPUSCULAR HEMOGLOBIN 26 PG (25-34); MEAN CORPUSCULAR HGB CONC 32 G/DL (32-36); MEAN CORPUSCULAR VOLUME 80 FL (80-99); MEAN PLATELET VOLUME 8.6 FL (7.4-10.4); MONOCYTES # (AUTO) 0.7 X 10^3 (0.0-1.0); MONOCYTES % (AUTO) 7 % (0-12); NEUTROPHILS # (AUTO) 7.6 X 10^3 (1.8-7.8); NEUTROPHILS % (AUTO) 74 % (42-75); PLATELET COUNT 230 10^3/uL (130-400); RED BLOOD COUNT 4.56 10^6/uL (4.35-5.85); RED CELL DISTRIBUTION WIDTH 14.9 % (10.0-14.5); WHITE BLOOD COUNT 10.3 10^3/uL (4.3-11.0)
--- NOTE | 2018-05-31 19:33 | ED General ---
General Chief Complaint: Respiratory Problems Stated Complaint: SOA Nursing Triage Note: pt brought in by ems with complaint of copd exacerbation. pt had two duonebs in route to the hospital. Nursing Sepsis Screen: No Definite Risk Source of Information: Patient, EMS, Old Records Exam Limitations: No Limitations History of Present Illness Date Seen by Provider: May 31, 2018 Time Seen by Provider: 19:00 Initial Comments This 73-year-old woman presents to the emergency room via EMS with complaints of confusion, hypoxia of 88 percent on her home 3 L/m, and difficulty breathing. She has known COPD. EMS reports she had notable improvement in her breathing and mental status after DuoNeb 2. She also coughed up a large amount of sputum during a coughing fit in route. Patient is found to be febrile on assessment. Patient reports increased cough recently. She has been admitted for COPD exacerbation and pneumonia in the past. She is a patient of Dr. Simmons. Her primary care providers in [place], [place]. She is noted to be tachycardic. Allergies and Home Medications Allergies Coded Allergies: No Known Drug Allergies (Unverified , 09/06/16) Home Medications Albuterol Sulfate 1 Puff Puff, 2 PUFF INH Q4H PRN for SHORTNESS OF BREATH, ( Reported) Aspirin 81 Mg Tab.chew, 81-162 MG PO DAILY PRN for PAIN, (Reported) Cetirizine HCl 10 Mg Tablet, 10 MG PO DAILY, (Reported) Citalopram Hydrobromide 40 Mg Tablet, 40 MG PO DAILY, (Reported) Cyanocobalamin (Vitamin B-12) 500 Mcg Tablet, 500 MCG PO DAILY, (Reported) Dextromethorphan HBr/Chlor-Mal 1 Each Tablet, 1 TAB PO DAILY, (Reported) Fluticasone/Vilanterol 1 Each Blst.w.dev, 1 PUFF INH DAILY, (Reported) Ipratropium/Albuterol Sulfate 3 Ml Ampul.neb, 3 ML IH Q6H PRN for SHORTNESS OF BREATH, (Reported) Montelukast Sodium 10 Mg Tablet, 10 MG PO HS, (Reported) Prednisone 20 Mg Tab, 20 MG PO DAILY Take 3 tabs(60mg)daily, decrease by 1/2 tab(10mg)daily. Prescribed by: DELILAH MEDEIROS on 09/08/16 1157 Patient Home Medication List Home Medication List Reviewed: Yes Review of Systems Review of Systems Constitutional: see HPI EENTM: no symptoms reported Respiratory: see HPI Cardiovascular: see HPI Gastrointestinal: no symptoms reported Genitourinary: no symptoms reported Musculoskeletal: no symptoms reported Skin: no symptoms reported Psychiatric/Neurological: No Symptoms Reported Hematologic/Lymphatic: No Symptoms Reported Past Sojiltv-Anybmx-Koaura Hx Patient Social History Alcohol Use: Denies Use Recreational Drug Use: No Smoking Status: Former Smoker Former Smoker, Quit: Sep 07, 2006 Recent Foreign Travel: No Contact w/Someone Who Travel: No Recent Infectious Disease Expo: No Recent Hopitalizations: No Immunizations Up To Date Date of Pneumonia Vaccine: Feb 08, 2016 Date of Influenza Vaccine: Apr 09, 2016 Past Medical History Surgeries: Yes (partial hysterectomy) Respiratory: Yes COPD Cardiac: No Neurological: No Reproductive Disorders: No Sexually Transmitted Disease: No Genitourinary: No Gastrointestinal: No Musculoskeletal: No Endocrine: No Hearing Impairment: Denies Cancer: No Psychosocial: No Integumentary: No Blood Disorders: No Family Medical History CANCER 19 MOTHER COPD 19 MOTHER Diabetes mellitus G8 BROTHER Physical Exam-Suspected Sepsis Physical Exam Vital Signs Vital Signs - First Documented Capillary Refill : Less Than 3 Seconds Blood Pressure Mean: 100 Height, Weight, BMI Height: 5'6.00" Weight: 200lbs. 5.0oz. [id number]; 31.8 BMI Method:Stated General Appearance: WD/WN, Mild Distress HEENT: PERRL/EOMI, Normal ENT Inspection Neck: Normal Inspection Respiratory: Accessory Muscle Use, Decreased Breath Sounds, Wheezing, Other ( coarse cough) Cardiovascular: No Edema, No Murmur, Tachycardia Gastrointestinal: Normal Bowel Sounds, Non Tender, Soft Extremity: Normal Capillary Refill, Normal Inspection, No Pedal Edema Neurologic/Psychiatric: Alert, No Motor/Sensory Deficits, Normal Mood/Affect, tan room supervisor II-XII Norm as Tested, Other (disoriented to place, cognition dulled) Skin: normal color, warm/dry Focused Exam Lactate Level 05/31/18 19:05: Lactic Acid Level 0.99 Lactic Acid Level Laboratory Tests Test 05/31/18 19:05 Lactic Acid Level 0.99 MMOL/L (0.50-2.00) Progress/Results/Core Measures Suspected Sepsis Recent Fever Within 48 Hours: No Infection Criteria Present: None New/Unexplained Altered Menta: No Sepsis Screen: No Definite Risk SIRS Temperature:101.9 Pulse: 119 Respiratory Rate: 20 Laboratory Tests 05/31/18 19:05: White Blood Count 10.3 Blood Pressure 138 /81 Mean: 100 05/31/18 19:05: Lactic Acid Level 0.99 Laboratory Tests 05/31/18 19:05: Creatinine 0.86, INR Comment 1.1, Platelet Count 230, Total Bilirubin 1.1H Results/Orders Lab Results Laboratory Tests Test 05/31/18 19:05 05/31/18 19:37 Range/Units White Blood Count 10.3 4.3-11.0 10^3/uL Red Blood Count 4.56 4.35-5.85 10^6/uL Hemoglobin 11.7 11.5-16.0 G/DL Hematocrit 36 35-52 % Mean Corpuscular Volume 80 80-99 FL Mean Corpuscular Hemoglobin 26 25-34 PG Mean Corpuscular Hemoglobin Concent 32 32-36 G/DL Red Cell Distribution Width 14.9 H 10.0-14.5 % Platelet Count 230 130-400 10^3/uL Mean Platelet Volume 8.6 7.4-10.4 FL Neutrophils (%) (Auto) 74 42-75 % Lymphocytes (%) (Auto) 18 12-44 % Monocytes (%) (Auto) 7 0-12 % Eosinophils (%) (Auto) 1 0-10 % Basophils (%) (Auto) 0 0-10 % Neutrophils # (Auto) 7.6 1.8-7.8 X 10^3 Lymphocytes # (Auto) 1.8 1.0-4.0 X 10^3 Monocytes # (Auto) 0.7 0.0-1.0 X 10^3 Eosinophils # (Auto) 0.1 0.0-0.3 10^3/uL Basophils # (Auto) 0.0 0.0-0.1 10^3/uL Prothrombin Time 14.3 12.2-14.7 SEC INR Comment 1.1 0.8-1.4 Activated Partial Thromboplast Time 33 24-35 SEC Sodium Level 137 135-145 MMOL/L Potassium Level 4.2 3.6-5.0 MMOL/L Chloride Level 99 98-107 MMOL/L Carbon Dioxide Level 26 21-32 MMOL/L Anion Gap 12 5-14 MMOL/L Blood Urea Nitrogen 14 7-18 MG/DL Creatinine 0.86 0.60-1.30 MG/DL Estimat Glomerular Filtration Rate > 60 BUN/Creatinine Ratio 16 Glucose Level 114 H 70-105 MG/DL Lactic Acid Level 0.99 0.50-2.00 MMOL/L Calcium Level 9.7 8.5-10.1 MG/DL Corrected Calcium 9.5 8.5-10.1 MG/DL Total Bilirubin 1.1 H 0.1-1.0 MG/DL Aspartate Amino Transf (AST/SGOT) 11 5-34 U/L Alanine Aminotransferase (ALT/SGPT) 8 0-55 U/L Alkaline Phosphatase 91 40-136 U/L Total Protein 7.9 6.4-8.2 GM/DL Albumin 4.2 3.2-4.5 GM/DL Blood Gas Puncture Site LEFT RADIAL Blood Gas Patient Temperature 101.9 Arterial Blood pH 7.44 H 7.37-7.43 Arterial Blood Partial Pressure CO2 41 35-45 MMHG Arterial Blood Partial Pressure O2 95 H 79-93 MMHG Arterial Blood HCO3 27 23-27 MMOL/L Arterial Blood Total CO2 28.0 21.0-31.0 MMOL/L Arterial Blood Oxygen Saturation 97 94-100 % Arterial Blood Base Excess 3.3 H -2.5-2.5 MMOL/L Morris Test POSITIVE Blood Gas Ventilator Setting NO Blood Gas Inspired Oxygen 3L Micro Results Microbiology 05/31/18 Influenza Types A,B Antigen (TAVO) - Final, Complete My Orders Orders - YUNI CRUZ MD Cbc With Automated Diff (05/31/18 19:10) Comprehensive Metabolic Panel (05/31/18 19:10) Blood Culture (05/31/18 19:10) Sputum Culture (05/31/18 19:10) Urinalysis (05/31/18 19:10) Urine Culture (05/31/18 19:10) Protime With Inr (05/31/18 19:10) Partial Thromboplastin Time (05/31/18 19:10) Chest 1 View, Ap/Pa Only (05/31/18 19:10) Saline Lock/Iv-Start (05/31/18 19:10) Saline Lock/Iv-Start (05/31/18 19:10) Vital Signs Adult Sepsis Patie Q15M (05/31/18 19:10) O2 (05/31/18 19:10) Remove Rings In Anticipation O (05/31/18 19:10) Lactic Acid Analyzer (05/31/18 19:10) Methylprednisolone Sod Succ (Solu-Medrol (05/31/18 19:15) Acetaminophen Tablet (Tylenol Tablet) (05/31/18 19:15) Influenza A And B Antigens (05/31/18 19:10) Albuterol Pre-Mix Nebs (Rt) (Proventil (05/31/18 19:12) Svn Small Volume Nebulizer (05/31/18 19:12) Arterial Blood Gas (05/31/18 19:14) Cefepime Injection (Maxipime Injection) (05/31/18 19:45) Saline Lock/Iv-Start (05/31/18 19:42) Ns Iv 1000 Ml (Sodium Chloride 0.9%) (05/31/18 19:42) Oseltamivir 75 Mg Capsule (Tamiflu 75 (05/31/18 20:00) Arterial Blood Draw (05/31/18 ) Medications Given in ED Current Medications Medications Dose Ordered Sig/Tatianna Route Start Time Stop Time Status Last Admin Dose Admin Acetaminophen 1,000 mg ONCE ONCE PO 18 19:15 1218 19:16 DC 05/31/18 19:22 1,000 MG Cefepime HCl 2000 mg/Sodium Chloride 50 ml @ 100 mls/hr ONCE ONCE IV 18 19:45 18 20:14 1818 19:56 100 MLS/HR Methylprednisolone Sodium Succinate 125 mg ONCE ONCE IVP 05/31/18 19:15 05/31/18 19:16 DC 18 19:22 125 MG Sodium Chloride 1,000 ml @ 0 mls/hr Q0M ONCE IV 05/31/18 19:42 18 19:43 DC 18 19:56 1,000 MLS/HR Vital Signs/I&O 18 1818 1218 19:03 19:03 19:22 Temp 101.9 Pulse 119 Resp 20 B/P (MAP) 138/81 (100) Pulse Ox 93 94 96 O2 Delivery Nasal Cannula Nasal Cannula Nasal Cannula O2 Flow Rate 3.00 3.00 3.00 Capillary Refill : Less Than 3 Seconds Blood Pressure Mean: 100 Progress Note : Time: 19:59 Progress Note Patient still had tight wheezes and increased work of breathing after DuoNeb treatment 2 before arrival. Therefore an albuterol hour-long treatment was ordered along with Solu-Medrol 125 mg IV. Patient was found to have influenza B and was started on Tamiflu in the ER. She was also found to have a right lower lobe pneumonia and was started on cefepime in the ER. She is also receiving a liter of IV fluid. Tylenol was given for the fever. Case was discussed with Dr. Simmons who would like her admitted to the cardiac step down unit and continued on cefepime. He agrees with continuing Solu-Medrol and Tamiflu as well. Patient was admitted to Dr. Medeiros as the hospitalist. BiPAP was ordered as needed as a precaution in case respiratory status worsens. Diagnostic Imaging Diagonstic Imaging: Xray Plain Films/CT/US/NM/MRI: chest Comments Chest x-ray viewed by me and report reviewed. See report below: NAME: [facility] REC#: [id number] PT STATUS: REG ER : 1945 PHYSICIAN: YUNI CRUZ MD ADMIT DATE: 05/31/18/ER Signed Date of Exam: 05/31/18 CHEST 1 VIEW, AP/PA ONLY INDICATION: Shortness of air and COPD. Time of exam: 7:29 PM Correlation is made with prior chest from 09/06/2016. Heart size is normal. Lungs are hyperinflated consistent with COPD. There is some patchy density in the right base suggestive of pneumonia. The left lung is clear. No effusion or pneumothorax is identified. IMPRESSION: COPD and patchy right basilar pneumonia. Dictated by: Dictated on workstation # [id number] Dict: 05/31/181935 Trans: 05/31/181940 Interpreted by: JAMAR SHER MD Electronically signed by: JAMAR SHER MD 05/31/181940 Departure Communication (Admissions) Time/Spoke to Admitting Phy: 19:55 Dr. Medeiros Time/Spoke to Consulting Phy: 19:45 Dr. Simmons Impression Primary Impression: Sepsis Qualified Codes: A41.9 - Sepsis, unspecified organism Additional Impressions: Right lower lobe pneumonia Qualified Codes: J18.1 - Lobar pneumonia, unspecified organism Influenza B COPD exacerbation Altered mental status Qualified Codes: R41.82 - Altered mental status, unspecified Disposition: ADMITTED INPATIENT Condition: Improved Admissions Decision to Admit Reason: Admit from ER (General) Decision to Admit/Date: May 31, 2018 Time/Decision to Admit Time: 19:05 Departure-Patient Inst. Referrals: PANCHO ÁLVAREZ DO (PCP/Family) Primary Care Physician YUNI CRUZ MD May 31, 2018 19:33
[2018-05-31 19:34] LABS: INR 1.1 (0.8-1.4); PROTHROMBIN TIME PATIENT 14.3 SEC (12.2-14.7)
--- NOTE | 2018-05-31 19:39 | Diagnostic Imaging Report ---
INDICATION: Shortness of air and COPD. Time of exam: 7:29 PM Correlation is made with prior chest from 09/06/2016. Heart size is normal. Lungs are hyperinflated consistent with COPD. There is some patchy density in the right base suggestive of pneumonia. The left lung is clear. No effusion or pneumothorax is identified. IMPRESSION: COPD and patchy right basilar pneumonia. Dictated by: Dictated on workstation # [id number]
[2018-05-31 19:42] LABS: ALANINE AMINOTRANSFERASE 8 U/L (0-55); ALBUMIN 4.2 GM/DL (3.2-4.5); ALKALINE PHOSPHATASE 91 U/L (40-136); BILIRUBIN,TOTAL 1.1 MG/DL (0.1-1.0); BUN/CREATININE RATIO 16; CALCIUM 9.7 MG/DL (8.5-10.1); CARBON DIOXIDE 26 MMOL/L (21-32); CHLORIDE 99 MMOL/L (98-107); CREATININE SERUM 0.86 MG/DL (0.60-1.30); GFR ESTIMATED > 60; GLUCOSE 114 MG/DL (70-105); POTASSIUM 4.2 MMOL/L (3.6-5.0); SODIUM 137 MMOL/L (135-145); TOTAL PROTEIN 7.9 GM/DL (6.4-8.2)
[2018-05-31] MEDS ORDERED: NS IV 1000 ML 1,000 ML IV ONE (19:42)
[2018-05-31 19:44] LABS: ABG BASE EXCESS 3.3 MMOL/L (-2.5-2.5); ABG OXYGEN SATURATION 97 % (94-100); ABG PCO2 41 MMHG (35-45); ABG PH 7.44 (7.37-7.43); ABG PO2 95 MMHG (79-93)
[2018-05-31 19:45] LABS: ALLENS TEST POSITIVE; INSPIRED O2 3L; PATIENT TEMP 101.9; VENTILATOR NO
[2018-05-31] MEDS ORDERED: CEFEPIME INJECTION 2,000 MG in NS (IVPB) 50 ML IV ONE (19:45)
[2018-05-31] MEDS ORDERED: OSELTAMIVIR 75 MG (TAMIFLU) CAPSULE PO ONE (20:00)
[2018-05-31] MEDS: NS IV 1000 ML 1,000 ML IV SCH (21:45)
[2018-05-31] MEDS ORDERED: RT-ALBUTEROL/IPRATROPIUM 3 ML (DUONEB) VIAL INH PRN (22:00)
[2018-05-31] MEDS: RT-ALBUTEROL/IPRATROPIUM 3 ML (DUONEB) VIAL INH SCH (22:10)
[2018-06-01] VITALS (24 sets, daily range): BP systolic 87–125; BP diastolic 43–83
[2018-06-01] MEDS ORDERED: methylPREDNISolone 40 MG/ML (Solu-MEDROL) VIAL IV SCH (01:00)
[2018-06-01] MEDS ORDERED: NS IV 500 ML 500 ML ONE ×2 (01:00→06:51)
[2018-06-01] MEDS ORDERED: NS IV 500 ML 500 ML IV SCH (01:45)
[2018-06-01] MEDS: NS IV 1000 ML 1,000 ML IV SCH ×2 (02:26→21:03)
[2018-06-01] MEDS: RT-ALBUTEROL/IPRATROPIUM 3 ML (DUONEB) VIAL INH SCH ×6 (02:55→21:16)
[2018-06-01 03:56] LABS: BASOPHILS % (AUTO) 0 % (0-10); EOSINOPHILS % (AUTO) 0 % (0-10); HEMATOCRIT 31 % (35-52); HEMOGLOBIN 9.5 G/DL (11.5-16.0); LYMPHOCYTES # (AUTO) 0.3 X 10^3 (1.0-4.0); LYMPHOCYTES % (AUTO) 4 % (12-44); MEAN CORPUSCULAR HEMOGLOBIN 25 PG (25-34); MEAN CORPUSCULAR HGB CONC 31 G/DL (32-36); MEAN CORPUSCULAR VOLUME 81 FL (80-99); MEAN PLATELET VOLUME 9.5 FL (7.4-10.4); MONOCYTES # (AUTO) 0.1 X 10^3 (0.0-1.0); MONOCYTES % (AUTO) 1 % (0-12); NEUTROPHILS # (AUTO) 8.3 X 10^3 (1.8-7.8); NEUTROPHILS % (AUTO) 95 % (42-75); PLATELET COUNT 180 10^3/uL (130-400); RED BLOOD COUNT 3.76 10^6/uL (4.35-5.85); RED CELL DISTRIBUTION WIDTH 14.9 % (10.0-14.5); WHITE BLOOD COUNT 8.7 10^3/uL (4.3-11.0)
[2018-06-01 04:13] LABS: BAND NEUTROPHILS 3 %; CALCIUM 8.7 MG/DL (8.5-10.1); CREATININE SERUM 0.99 MG/DL (0.60-1.30); LYMPHOCYTES % (MANUAL) 5 %; MAGNESIUM 1.7 MG/DL (1.8-2.4); MONOCYTES % (MANUAL) 1 %; NEUTROPHILS % (MANUAL) 91 %; PHOSPHORUS 3.2 MG/DL (2.3-4.7); POTASSIUM 3.9 MMOL/L (3.6-5.0); RBC MORPH NORMAL
[2018-06-01] MEDS: MAGNESIUM 1 GM/100 ML IVPB 100 ML IV SCH ×2 (05:20→06:20)
--- NOTE | 2018-06-01 05:45 | Pulmonary Consultation ---
History of Present Illness History of Present Illness Date of Consultation 06/01/18 05:43 Time Seen by Provider: 05:43 Date of Admission History of Present Illness 73yo with hx of oxygen dependent COPD presented to ED via EMS secondary to worsening respiratory distress, strong productive cough and confusion. In the ED she was found to have hypoxia of 88% on 3l/min of oxygen. Pt tested positive for influenza B and a RLL pneumonia. I am consulted for pulmonary/CC management. Currently on BiPAP Allergies and Home Medications Allergies Coded Allergies: No Known Drug Allergies (Unverified , 09/06/16) Home Medications Albuterol Sulfate 1 Puff Puff, 2 PUFF INH Q4H PRN for SHORTNESS OF BREATH, ( Reported) Aspirin 81 Mg Tab.chew, 81-162 MG PO DAILY PRN for PAIN, (Reported) Cetirizine HCl 10 Mg Tablet, 10 MG PO DAILY, (Reported) Citalopram Hydrobromide 40 Mg Tablet, 40 MG PO DAILY, (Reported) Cyanocobalamin (Vitamin B-12) 500 Mcg Tablet, 500 MCG PO DAILY, (Reported) Dextromethorphan HBr/Chlor-Mal 1 Each Tablet, 1 TAB PO DAILY, (Reported) Fluticasone/Vilanterol 1 Each Blst.w.dev, 1 PUFF INH DAILY, (Reported) Ipratropium/Albuterol Sulfate 3 Ml Ampul.neb, 3 ML IH Q6H PRN for SHORTNESS OF BREATH, (Reported) Montelukast Sodium 10 Mg Tablet, 10 MG PO HS, (Reported) Prednisone 20 Mg Tab, 20 MG PO DAILY Take 3 tabs(60mg)daily, decrease by 1/2 tab(10mg)daily. Prescribed by: DELILAH MEDEIROS on 09/08/16 1157 Past Ftbmcmv-Skcpcw-Qkealz Hx Patient Social History Alcohol Use: Denies Use Recreational Drug Use: No Smoking Status: Former Smoker Former Smoker, Quit: Sep 07, 2006 Recent Foreign Travel: No Contact w/Someone Who Travel: No Recent Infectious Disease Expo: No Recent Hopitalizations: No Immunizations Up To Date PED Vaccines UTD: Yes Date of Pneumonia Vaccine: Feb 08, 2016 Date of Influenza Vaccine: Mar 02, 2018 Seasonal Allergies Seasonal Allergies: Yes Past Medical History Surgeries: Yes (partial hysterectomy) Respiratory: Yes Pneumonia, COPD Currently Using CPAP: No Currently Using BIPAP: No Cardiac: No Neurological: No Reproductive Disorders: No Female Reproductive Disorders: Ovarian Cyst Sexually Transmitted Disease: No HIV/AIDS: No Genitourinary: No Gastrointestinal: No Musculoskeletal: No Endocrine: No Hearing Impairment: Denies Cancer: No Psychosocial: Yes Anxiety Integumentary: No Blood Disorders: No Adverse Reaction/Blood Tranf: No Family Medical History CANCER 19 MOTHER COPD 19 MOTHER Diabetes mellitus G8 BROTHER Sepsis Event Evaluation Height, Weight, BMI Height: 5'7.00" Weight: 176lbs. 8.0oz. 80.669866ot; 27.6 BMI Method:Stated Exam Exam Vital Signs Date Time Temp Pulse Resp B/P (MAP) Pulse Ox O2 Delivery O2 Flow Rate FiO2 06/01/18 04:45 88 23 96 35.00 06/01/18 04:13 99.2 06/01/18 04:00 67 25 114/70 (85) 92 NIV Bilevel 30.00 06/01/18 04:00 NIV Bilevel 06/01/18 03:00 85 22 103/57 (72) 99 NIV Bilevel 30.00 06/01/18 02:55 87 22 98 35.00 06/01/18 02:08 100 06/01/18 02:00 93 24 102/66 (78) 100 NIV Bilevel 30.00 06/01/18 01:00 100 27 100/67 (78) 92 NIV Bilevel 30.00 06/01/18 00:15 100 27 95 35.00 06/01/18 00:00 108 20 96/70 (79) 95 NIV Bilevel 30.00 06/01/18 00:00 98.5 06/01/18 00:00 NIV Bilevel 05/31/18 23:00 111 18 98/66 (77) 94 NIV Bilevel 30.00 05/31/18 22:45 107 28 100/63 (75) 92 NIV Bilevel 30.00 05/31/18 22:30 111 30 104/73 (83) 96 NIV Bilevel 30.00 05/31/18 22:15 106 25 104/65 (78) 100 NIV Bilevel 30.00 05/31/18 22:10 111 33 95 30.00 05/31/18 22:10 108 23 99 NIV Bilevel 30.00 05/31/18 22:00 108 31 108/72 (84) 98 Nasal Cannula 4.00 05/31/18 21:45 111 14 101/68 (79) 100 Nasal Cannula 4.00 18 21:45 111 14 101/68 (79) 100 Nasal Cannula 4.00 05/31/18 21:35 122 96 1818 21:30 116 19 103/71 (82) 99 Nasal Cannula 4.00 18 21:30 116 19 103/71 (82) 99 Nasal Cannula 4.00 05/31/18 21:15 123 28 101/78 (86) Nasal Cannula 4.00 05/31/18 21:15 123 28 101/78 (86) Nasal Cannula 4.00 05/31/18 21:00 135 25 108/97 (101) Nasal Cannula 4.00 05/31/18 21:00 135 25 108/97 (101) Nasal Cannula 4.00 05/31/18 21:00 Nasal Cannula 4.00 05/31/18 20:55 129 29 127/81 (96) Nasal Cannula 4.00 05/31/18 20:55 129 29 127/81 (96) Nasal Cannula 4.00 18 20:53 125 18 20:53 97.7 125 21 127/74 (91) Nasal Cannula 4.00 05/31/18 20:53 97.7 125 21 127/74 (91) Nasal Cannula 4.00 05/31/18 20:40 123 25 140/73 (95) 95 Nasal Cannula 3.00 05/31/18 19:22 96 Nasal Cannula 3.00 05/31/18 19:03 94 Nasal Cannula 3.00 05/31/18 19:03 101.9 119 20 138/81 (100) 93 Nasal Cannula 3.00 I & O 06/01/18 07:00 Intake Total 1500 ml Balance 1500 ml Height & Weight Height: 5'7.00" Weight: 176lbs. 8.0oz. 80.452168zw; 27.6 BMI Method:Stated General Appearance: WD/WN, Anxious, Mild Distress HEENT: PERRL/EOMI, Normal ENT Inspection Neck: Normal Inspection Respiratory: Accessory Muscle Use, Decreased Breath Sounds, Wheezing, Other ( coarse cough) Cardiovascular: No Edema, No Murmur, Tachycardia Capillary Refill: Less Than 3 Seconds Extremity: Normal Capillary Refill, Normal Inspection, No Pedal Edema Neurologic/Psychiatric: Alert, No Motor/Sensory Deficits, Normal Mood/Affect, venture capitalist II-XII Norm as Tested, Other (disoriented to place, cognition dulled) Results Lab Laboratory Tests 05/31/18 19:05 06/01/18 03:23 Assessment/Plan Assessment/Plan Acute on chronic respiratory failure -BiPAP PRN -Oxygen -SVNs Hyperglycemia -Decrease solumedrol 40 IV Q12 Sepsis with RLL PNA -Continue cefepime Anemia -Monitor -Check occult stool Decreased UO -GIve 500 bolus of NS Influenza + B -Continue Tamiflu Metabolic encephalopathy -Monitor Hypomag -replace LISA SAXENA DO Jun 01, 2018 05:45
--- NOTE | 2018-06-01 07:25 | Diagnostic Imaging Report ---
INDICATION: Shortness of air. COMPARISON: 05/31/2018. FINDINGS: Improving but persistent bibasilar heterogeneous opacities. Potential trace right pleural effusion is unchanged. No pneumothorax. Stable cardiomediastinal silhouette. Hiatus hernia similar. IMPRESSION: Improving but persistent bibasilar pulmonary opacities. Dictated by: Dictated on workstation # [id number]
[2018-06-01] MEDS ORDERED: NS (IVPB) 500 ML IV ONE (07:30)
--- NOTE | 2018-06-01 07:57 | History & Physical-Hospitalist ---
History of Present Illness HPI/Chief Complaint Pt is a 73yoCF with a PMH of COPD who presented to the ER due to SOB via EMS. She states that her symptoms have been slowing getting worse over the past few days and last night got a lot worse prompting her to call EMS. She received Duonebs en route and improved but was still wheezing significantly on arrival. She states today she is feeling much better but still somewhat SOB. She generally wears 3lpm and at this time she is on BiPAP. She was found to meet sepsis criteria and was admitted for bilateral pneumonia and Influenza B +. Date Seen 06/01/18 Time Seen by a Provider: 07:49 Attending Physician Srinivasan Goldberg MD PCP Brandon Worthington III, MD Referring Physician Date of Admission May 31, 2018 at 19:57 Home Medications & Allergies Home Medications Reviewed patient Home Medication Reconciliation performed by pharmacy medication reconciliations install technician and/or nursing. Patients Allergies have been reviewed. Allergies Allergies Coded Allergies No Known Drug Allergies (Unverified09/06/16) Past Ywwjxhg-Fykinc-Jesvzj Hx Past Med/Social Hx: Reviewed Nursing Past Med/Soc Hx Patient Social History Alcohol Use: Denies Use Recreational Drug Use: No Smoking Status: Former Smoker Former Smoker, Quit: Sep 07, 2006 Physical Abuse Screen: No Sexual Abuse: No Recent Foreign Travel: No Contact w/other who traveled: No Recent Hopitalizations: No Recent Infectious Disease Expo: No Immunizations Up To Date Pediatric: Yes Date of Pneumonia Vaccine: Feb 08, 2016 Date of Influenza Vaccine: Mar 02, 2018 Seasonal Allergies Seasonal Allergies: Yes Past Medical History Respiratory: COPD Currently Using CPAP: No Currently Using BIPAP: No Cardiac: Hypertension Reproductive: No Sexually Transmitted Disease: No HIV/AIDS: No Female Reproductive Disorders: Ovarian Cyst Hearing Impairment: Denies Psychosocial: Anxiety History of Blood Disorders: No Adverse Reaction to Blood [place]: No Family History Reviewed Nursing Family Hx CANCER 19 MOTHER COPD 19 MOTHER Diabetes mellitus G8 BROTHER Review of Systems Constitutional: No chills; fever; No weakness EENTM: No blurred vision, No double vision, No nose congestion, No throat pain Respiratory: cough, phlegm, short of breath Cardiovascular: No chest pain, No edema, No palpitations Gastrointestinal: No abdominal pain, No constipation, No diarrhea, No nausea, No vomiting Genitourinary: No dysuria, No frequency Musculoskeletal: No joint pain, No muscle pain Skin: No lesions, No rash Psychiatric/Neurological: Denies Headache, Denies Numbness, Denies Tingling Physical Exam Physical Exam Vital Signs Vital Signs - First Documented Capillary Refill : Less Than 3 SecondsLess Than 3 Seconds Height, Weight, BMI Height: 5'7.00" Weight: 186lbs. 6.4oz. 84.671341jp; 27.6 BMI Method:Stated General Appearance: Chronically ill, Mild Distress, Other (on BiPAP) HEENT: PERRL/EOMI, Moist Mucous Membranes Neck: Non Tender, Supple Respiratory: No Accessory Muscle Use, Decreased Breath Sounds (nearly no air movement in bases), Wheezing Cardiovascular: Regular Rate, Rhythm, No Murmur Gastrointestinal: Normal Bowel Sounds, Non Tender, Soft Extremity: Normal Capillary Refill, No Calf Tenderness Neurologic/Psychiatric: Alert, Oriented x3, Normal Mood/Affect Skin: Normal Color, Warm/Dry Results Results/Procedures Labs Laboratory Tests 05/31/18 19:05 06/01/18 03:23 Patient resulted labs reviewed. Imaging: Reviewed Imaging Report Assessment/Plan Admission Diagnosis Sepsis Admission Status: Inpatient Order (span 2 midnights) Reason for Inpatient Admission: IV abx, acute respiratory failure Diagnosis/Problems Diagnosis/Problems (1) Acute respiratory failure Status: Acute Assessment & Plan: Generally on 3lpm Currently on BiPAP Attempt to transition off BiPAP Continue steroids, abx Pulm consulted, appreciate recs Qualifiers: Respiratory failure complication: hypoxia Qualified Codes: J96.01 - Acute respiratory failure with hypoxia (2) Sepsis Status: Acute Assessment & Plan: Febrile and tachycardiac on arrival bibasailar pna noted on CXR Not hypotensive and lactic acid normal Await blood cultures Qualifiers: Sepsis type: sepsis due to unspecified organism Qualified Codes: A41.9 - Sepsis, unspecified organism (3) CAP (community acquired pneumonia) Status: Acute Assessment & Plan: Bilateral basilar pneumonia Continue on Cefepime Qualifiers: Laterality: unspecified laterality Qualified Codes: J18.9 - Pneumonia, unspecified organism (4) Influenza B Status: Acute Assessment & Plan: Continue tamiflu (5) COPD exacerbation Status: Acute Assessment & Plan: Continue steroids and SVNs MAT protocol (6) Altered mental status Status: Acute Assessment & Plan: Seems to be improving from report of previous mentation Still some slight confusion Trend Qualifiers: Altered mental status type: unspecified Qualified Codes: R41.82 - Altered mental status, unspecified (7) Hyperglycemia Status: Acute Assessment & Plan: No known history of DM Fasting BS 266 this AM likely due to steroids/stress Will add SSI Clinical Quality Measures DVT/VTE Risk/Contraindication: Risk Factor Score Per Nursin RFS Level Per Nursing on Admit: 4+=Very High MIKE DOWNEY MD Jun 01, 2018 07:57
[2018-06-01] MEDS ORDERED: ESCI10TA55 PO (09:42)
[2018-06-01] MEDS ORDERED: ALBU18HF2 INH (09:42)
[2018-06-01] MEDS ORDERED: BENZ-36 PO (09:51)
[2018-06-01] MEDS: OSELTAMIVIR 30 MG (TAMIFLU) CAPSULE PO SCH ×2 (09:53→22:46)
[2018-06-01] MEDS: methylPREDNISolone 40 MG/ML (Solu-MEDROL) VIAL IV SCH ×2 (09:53→21:03)
[2018-06-01] MEDS: inSUlin ASPART (NovoLOG) 1 UNIT/0.01 ML (CHARGE PER UNIT) SC SCH ×3 (11:49→21:02)
[2018-06-01] MEDS ORDERED: CEFEPIME INJECTION 2,000 MG in NS (IVPB) 50 ML IV SCH (21:00)
[2018-06-02] VITALS: BP 122/64
[2018-06-02] MEDS: RT-ALBUTEROL/IPRATROPIUM 3 ML (DUONEB) VIAL INH SCH ×4 (01:31→14:46)
[2018-06-02 05:42] LABS: BASOPHILS % (AUTO) 0 % (0-10); EOSINOPHILS % (AUTO) 0 % (0-10); HEMATOCRIT 29 % (35-52); HEMOGLOBIN 9.1 G/DL (11.5-16.0); LYMPHOCYTES # (AUTO) 0.6 X 10^3 (1.0-4.0); LYMPHOCYTES % (AUTO) 4 % (12-44); MEAN CORPUSCULAR HEMOGLOBIN 26 PG (25-34); MEAN CORPUSCULAR HGB CONC 31 G/DL (32-36); MEAN CORPUSCULAR VOLUME 82 FL (80-99); MEAN PLATELET VOLUME 9.4 FL (7.4-10.4); MONOCYTES # (AUTO) 0.4 X 10^3 (0.0-1.0); MONOCYTES % (AUTO) 2 % (0-12); NEUTROPHILS # (AUTO) 15.1 X 10^3 (1.8-7.8); NEUTROPHILS % (AUTO) 94 % (42-75); PLATELET COUNT 176 10^3/uL (130-400); RED BLOOD COUNT 3.56 10^6/uL (4.35-5.85); RED CELL DISTRIBUTION WIDTH 15.1 % (10.0-14.5); WHITE BLOOD COUNT 16.1 10^3/uL (4.3-11.0)
[2018-06-02 05:59] LABS: BAND NEUTROPHILS 5 %; BASOPHILS % (MANUAL) 0 %; EOSINOPHILS % (MANUAL) 0 %; LYMPHOCYTES % (MANUAL) 2 %; MONOCYTES % (MANUAL) 1 %; NEUTROPHILS % (MANUAL) 92 %
[2018-06-02 06:00] LABS: ANISOCYTOSIS SLIGHT; MICROCYTOSIS SLIGHT
[2018-06-02 06:02] LABS: BUN/CREATININE RATIO 27; CALCIUM 8.5 MG/DL (8.5-10.1); CARBON DIOXIDE 20 MMOL/L (21-32); CHLORIDE 110 MMOL/L (98-107); CREATININE SERUM 0.85 MG/DL (0.60-1.30); GFR ESTIMATED > 60; GLUCOSE 160 MG/DL (70-105); SODIUM 140 MMOL/L (135-145)
[2018-06-02] MEDS: inSUlin ASPART (NovoLOG) 1 UNIT/0.01 ML (CHARGE PER UNIT) SC SCH ×3 (06:09→16:09)
[2018-06-02 08:00] VITALS: BP 167/74
[2018-06-02] MEDS: methylPREDNISolone 40 MG/ML (Solu-MEDROL) VIAL IV SCH (08:44)
[2018-06-02] MEDS: OSELTAMIVIR 30 MG (TAMIFLU) CAPSULE PO SCH (08:45)
[2018-06-02] MEDS: NS IV 1000 ML 1,000 ML IV SCH (11:06)
[2018-06-02] MEDS ORDERED: PRED10TA22 PO (11:29)
[2018-06-02] MEDS ORDERED: CEFD300C3 PO (11:29)
[2018-06-02] MEDS ORDERED: OSEL30CA PO (11:29)
[2018-06-02] MEDS ORDERED: OSELTAMIVIR 30 MG (TAMIFLU) CAPSULE PO SCH ×2 (11:30→11:34)
--- NOTE | 2018-06-02 11:34 | Discharge Summary-Hospitalist ---
Diagnosis/Chief Complaint Date of Admission May 31, 2018 at 19:57 Date of Discharge Discharge Date: Jun 02, 2018 Admission Diagnosis Sepsis Discharge Diagnosis (1) Acute respiratory failure Status: Acute Assessment & Plan: Generally on 3lpm Currently on BiPAP Attempt to transition off BiPAP Continue steroids, abx Pulm consulted, appreciate recs (2) Sepsis Status: Acute Assessment & Plan: Febrile and tachycardiac on arrival bibasailar pna noted on CXR Not hypotensive and lactic acid normal Await blood cultures (3) CAP (community acquired pneumonia) Status: Acute Assessment & Plan: Bilateral basilar pneumonia Continue on Cefepime (4) Influenza B Status: Acute Assessment & Plan: Continue tamiflu (5) COPD exacerbation Status: Acute Assessment & Plan: Continue steroids and SVNs MAT protocol (6) Altered mental status Status: Acute Assessment & Plan: Seems to be improving from report of previous mentation Still some slight confusion Trend (7) Hyperglycemia Status: Acute Assessment & Plan: No known history of DM Fasting BS 266 this AM likely due to steroids/stress Will add SSI Discharge Summary Discharge Physical Exam Allergies: Coded Allergies: No Known Drug Allergies (Unverified , 09/06/16) Vitals & I&Os Vital Signs Date Time Temp Pulse Resp B/P (MAP) Pulse Ox O2 Delivery O2 Flow Rate FiO2 06/02/18 10:07 98 Nasal Cannula 3.00 06/02/18 08:00 97.1 89 22 167/74 (105) Hospital Course Labs (last 24 hrs) Laboratory Tests 06/01/18 20:34: Glucometer 149H 06/02/18 05:18: White Blood Count 16.1H, Red Blood Count 3.56L, Hemoglobin 9.1L, Hematocrit 29L , Mean Corpuscular Volume 82, Mean Corpuscular Hemoglobin 26, Mean Corpuscular Hemoglobin Concent 31L, Red Cell Distribution Width 15.1H, Platelet Count 176, Mean Platelet Volume 9.4, Neutrophils (%) (Auto) 94H, Lymphocytes (%) (Auto) 4L , Monocytes (%) (Auto) 2, Eosinophils (%) (Auto) 0, Basophils (%) (Auto) 0, Neutrophils # (Auto) 15.1H, Lymphocytes # (Auto) 0.6L, Monocytes # (Auto) 0.4, Eosinophils # (Auto) 0.0, Basophils # (Auto) 0.0, Neutrophils % (Manual) 92, Lymphocytes % (Manual) 2, Monocytes % (Manual) 1, Eosinophils % (Manual) 0, Basophils % (Manual) 0, Band Neutrophils 5, Anisocytosis SLIGHT, Microcytosis SLIGHT, Sodium Level 140, Potassium Level 5.0, Chloride Level 110H, Carbon Dioxide Level 20L, Anion Gap 10, Blood Urea Nitrogen 23H, Creatinine 0.85, Estimat Glomerular Filtration Rate > 60, BUN/Creatinine Ratio 27, Glucose Level 160H, Calcium Level 8.5 06/02/18 10:44: Glucometer 136H Microbiology 05/31/18 Blood Culture - Preliminary, Resulted No growth 05/31/18 Influenza Types A,B Antigen (TAVO) - Final, Complete Patient resulted labs reviewed. Pending Labs Laboratory Tests 06/02/18 05:18: White Blood Count 16.1, Red Blood Count 3.56, Hemoglobin 9.1, Hematocrit 29, Mean Corpuscular Volume 82, Mean Corpuscular Hemoglobin 26, Mean Corpuscular Hemoglobin Concent 31, Red Cell Distribution Width 15.1, Platelet Count 176, Mean Platelet Volume 9.4, Neutrophils (%) (Auto) 94, Lymphocytes (%) (Auto) 4, Monocytes (%) (Auto) 2, Eosinophils (%) (Auto) 0, Basophils (%) (Auto) 0, Neutrophils # (Auto) 15.1, Lymphocytes # (Auto) 0.6, Monocytes # (Auto) 0.4, Eosinophils # (Auto) 0.0, Basophils # (Auto) 0.0, Neutrophils % (Manual) 92, Lymphocytes % (Manual) 2, Monocytes % (Manual) 1, Eosinophils % (Manual) 0, Basophils % (Manual) 0, Band Neutrophils 5, Anisocytosis SLIGHT, Microcytosis SLIGHT, Sodium Level 140, Potassium Level 5.0, Chloride Level 110, Carbon Dioxide Level 20, Anion Gap 10, Blood Urea Nitrogen 23, Creatinine 0.85, Estimat Glomerular Filtration Rate > 60, BUN/Creatinine Ratio 27, Glucose Level 160, Calcium Level 8.5 06/02/18 10:44: Glucometer 136 Imaging: Reviewed Imaging Report Discharge Home Medications: Active Scripts Active Prednisone 10 Mg Tab.ds.pk 10 Mg PO DAILY Take 6 tabs(60mg)daily,decrease by 1 tab(10mg)every other day. Cefdinir 300 Mg Capsule 300 Mg PO BID Tamiflu (Oseltamivir Phosphate) 30 Mg Capsule 30 Mg PO BID 3 Days Reported Benzonatate 100 Mg Capsule 100 Mg PO TID PRN Escitalopram Oxalate 10 Mg Tablet 10 Mg PO DAILY Ventolin Hfa (Albuterol Sulfate) 18 Gm Hfa.aer.ad 2 Puff INH Q4H PRN Vitamin B-12 (Cyanocobalamin (Vitamin B-12)) 500 Mcg Tablet 500 Mcg PO DAILY Coricidin Hbp Cough & Cold Tab (Dextromethorphan HBr/Chlor-Mal) 1 Each Tablet 1 Tab PO DAILY Iprat-Albut 0.5-3(2.5) mg/3 ml (Ipratropium/Albuterol Sulfate) 3 Ml Ampul.neb 3 Ml NEB Q6H PRN Aspirin 81 Mg Tab.chew 81-162 Mg PO DAILY PRN Breo Ellipta 100-25 Mcg INH (Fluticasone/Vilanterol) 1 Each Blst.w.dev 1 Puff INH DAILY Instructions to patient/family Please see electronic discharge instructions given to patient. Clinical Quality Measures DVT/VTE Risk/Contraindication: Risk Factor Score Per Nursin RFS Level Per Nursing on Admit: 4+=Very High Problem Qualifiers (1) Acute respiratory failure: Respiratory failure complication: hypoxia Qualified Codes: J96.01 - Acute respiratory failure with hypoxia (2) Sepsis: Sepsis type: sepsis due to unspecified organism Qualified Codes: A41.9 - Sepsis, unspecified organism (3) CAP (community acquired pneumonia): Laterality: unspecified laterality Qualified Codes: J18.9 - Pneumonia, unspecified organism (4) Altered mental status: Altered mental status type: unspecified Qualified Codes: R41.82 - Altered mental status, unspecified MIKE DOWNEY MD Jun 02, 2018 11:34
[2018-06-02] MEDS ORDERED: RELABEL FOR HOME USE MC SCH (11:45)
[2018-06-02 12:00] VITALS: BP 160/74
--- NOTE | 2018-06-02 14:34 | Discharge Inst-Simple/Standard ---
Discharge Inst-Standard Discharge Medications New, Converted or Re-Newed RX: Transmitted to Pharmacy Patient Instructions/Follow Up Plan of Care/Instructions/FU: Please continue to take your medications as written. Please follow up with Dr Worthington to follow up this hospital stay. Activity as Tolerated: Yes Discharge Diet: No Restrictions Return to The Hospital For: Shortness of breath, worsening cough, increasing oxygen requirement, fever, confusion, chest pain, if you feel you are getting worse. Planned Outpatient Orders/Ref. Pneu Vac Indicated: Yes MIKE DOWNEY MD Jun 02, 2018 14:34
[2018-06-02 15:45] VITALS: BP 172/80
[2018-06-02 16:11] VITALS: BP 160/74
== END 2018-06-02 16:08 | disposition home or self-care (01) | DRG 871 ==
LOC: EDUNIT# 18:59 → ER 19:02 → ICU 19:57 → 4TH 06-01 18:27
PROVIDERS: ADMIT Internal Medicine; ATTEND Internal Medicine
DX: A41.9 Sepsis, unspecified organism (principal); J10.00 Influenza due to other identified influenza virus with unspecified type of pneumonia; J18.9 Pneumonia, unspecified organism; J96.01 Acute respiratory failure with hypoxia; G93.41 Metabolic encephalopathy; J44.1 Chronic obstructive pulmonary disease with (acute) exacerbation; J44.0 Chronic obstructive pulmonary disease with (acute) lower respiratory infection; R73.9 Hyperglycemia, unspecified; F41.9 Anxiety disorder, unspecified; D64.9 Anemia, unspecified; Z90.710 Acquired absence of both cervix and uterus; Z87.891 Personal history of nicotine dependence
CPT/HCPCS: 36415; 36600; 71045; 80048; 80053; 82805; 82962; 83605; 83735; 84100; 85007; 85025; 85027; 85610; 85730; 87040; 87081; 87804; 94640; 94660; 96374; 96375

== ENCOUNTER → 2018-07-19 | Outpatient (CLI) | payer MEDICARE, OTHER ==
[~2018-07-19] MED LIST changes: +ALBU18HF2 INH; +BENZ-36 PO; +CEFD300C3 PO; +ESCI10TA55 PO; +IOHEXOL 350 MG/ML 100 ML (OMNIPAQUE 350) VIAL IV ONE; +NS 100 ML (IVPB) BAG IV ONE; +OSEL30CA PO; +PRED10TA22 PO; +RECEIVED CONTRAST (Hold Metformin) IV SCH
[2018-07-19 09:42] LABS: BUN/CREATININE RATIO 23; CREATININE SERUM 0.86 MG/DL (0.60-1.30); GFR ESTIMATED > 60
--- NOTE | 2018-07-19 22:22 | Diagnostic Imaging Report ---
PROCEDURE: CT chest with contrast only. TECHNIQUE: Multiple contiguous axial images were obtained through the chest after administration of intravenous contrast. DATE: July 19, 2018. COMPARISON: Chest radiographs July 04, 2018. CT chest October 09, 2016. INDICATION: 73-year-old female, shortness of breath. FINDINGS: There are predominantly linear opacities in the right lower lobe most likely relating to scarring and/or atelectasis. There are predominantly linear opacities in the right upper lobe compatible with scarring which are unchanged since comparison exam. There is mild scarring in the left upper lobe. There are mild linear opacities in the left lower lobe compatible with scarring . There is no peripheral honeycombing. There is no bronchiectasis. There is no additional alveolar consolidation. There is no identified pulmonary nodule or lung mass. The central airways are patent. There is no pneumothorax. There is no pleural effusion. There is no identified large central pulmonary embolus. There is nondiagnostic assessment for segmental and subsegmental pulmonary emboli given the timing of the contrast bolus. The main pulmonary artery is normal in caliber. The heart is not enlarged. There is no pericardial effusion. There are atherosclerotic calcifications. There is a right hilar lymph node on axial image 26 which measures 13 mm in short axis. There are additional subcentimeter short axis right hilar lymph nodes. There is no additional abnormally enlarged mediastinal or hilar lymph node. There is no abnormally enlarged axillary lymph node. There are very mild disc degenerative changes of the thoracic spine. There is no identified acute bony abnormality. IMPRESSION: CT CHEST. 1. Multifocal linear opacities in the right lower lobe, left upper lobe, and left lower lobe which are present on prior exam of October 09, 2016 and most likely relate to scarring. There are increased linear opacities in the right lower lobe which may relate to interval increase in scarring and/or atelectasis. 2. No identified interval acute cardiopulmonary abnormality. 3. Prominent right hilar lymph nodes which are difficult to evaluate for stability as the prior CT chest exam is without contrast. These potentially could relate to the chronic lung changes. Dictated by: Dictated on workstation # [id number]
== END ==
LOC: RAD 09:13
PROVIDERS: ATTEND Nurse Practitioner Family
DX: J44.9 Chronic obstructive pulmonary disease, unspecified (principal); J18.9 Pneumonia, unspecified organism; R59.0 Localized enlarged lymph nodes
CPT/HCPCS: 36415; 71260; 82565; 84520